=== PATIENT | male | born 1955 | race Caucasian/White ===

== ENCOUNTER 2018-10-04 16:45 | Emergency (ER) | payer OTHER ==
[~2018-10-04] VITALS: Ht 177.8 cm; Wt 77.3 kg
[2018-10-04] MEDS ORDERED: GABA-529 PO (16:55)
[2018-10-04] MEDS ORDERED: CARB100 PO (16:55)
[2018-10-04 19:40] VITALS: BP 148/88
== END 2018-10-04 19:45 | disposition home or self-care (01) ==
LOC: EMS 16:47
DX: L03.116 Cellulitis of left lower limb (principal)
CPT/HCPCS: 93971